=== PATIENT | female | born 1990 | race Caucasian/White ===

== ENCOUNTER 2021-08-26 11:21 | Emergency (ER) | payer BC, OTHER ==
[2021-08-26] MEDS ORDERED: diphenhydrAMINE 50 MG/ML 1 ML VIAL IVP STA (12:20)
[2021-08-26] MEDS ORDERED: MORPHINE SULFATE 4 MG/ML SYRINGE IV STA (12:20)
[2021-08-26] MEDS ORDERED: ONDANSETRON ODT 8 MG TAB.RAPDIS PO STA (12:20)
[2021-08-26] MEDS ORDERED: KETOROLAC 30 MG/ML 1 ML VIAL IVP STA (12:20)
[2021-08-26] MEDS ORDERED: SODIUM CHLORIDE 0.9% 2,000 ML IV STA (12:20)
[2021-08-26] MEDS ORDERED: ACETAMINOPHEN TAB 500 MG TAB PO STA (12:35)
[2021-08-26] MEDS ORDERED: ONDANSETRON 4 MG/2 ML VIAL IVP STA (12:35)
--- NOTE | 2021-08-26 12:35 | ED ---
General Adult HPI - General Chief complaint: Back Pain/Injury Stated complaint: back pain Time Seen by Provider: 08/26/21 12:08 Source: patient, family, RN notes reviewed, old records reviewed Mode of arrival: ambulatory Limitations: no limitations - History of Present Illness Initial comments: Patient is a 31-year-old female with past medical history remarkable for no prior medical problems currently on control who presents emergency Department complaining of abdominal pain and fevers. Patient was seen 2 or 3 days ago at a different emergency department. At that time, she was worked up for a possible spinal epidural abscess and received an MRI which is negative. They performed an ultrasound. They diagnosed with UTI, start her on antibiotics and sent her home. She states that the pain is getting worse over the last day or so with nausea and vomiting. She is having poor by mouth intake due to nausea. She presents to emergency department for reevaluation. She denies any dysuria, vaginal discharge, bleeding. She states she believes she is about to start her menstrual cycle. Denies any known history of ovarian cysts. Denies any chest pain, shortness of breath. Denies any cough. Endorses fever. Endorses bilateral flank pain as well as suprapubic abdominal pain with some radiation to the bilateral lower back. Denies any midline spinal tenderness palpation. Denies any saddle anesthesias, numbness. Denies any lower extremity weakness. Nurses normal strength in the bilateral lower extremities. Denies any headache. She has no other acute complaints at this time. Patient is concerned for possible worsening infectious process. She has been compliant with her Macrobid which she was discharged on upon leaving. No known history of any stones in herself but does endorse a history of renal stones and family memb ers. She has no history of IV drug use. - Related Data Home Medications Medication Instructions Recorded Confirmed Norgestimate-Ethinyl Estradiol 1 tab PO DAILY 05/12/16 05/12/16 [Ortho Tri-Cyclen 28 Tablet] Previous Rx's Medication Instructions Recorded Fluticasone Propionate [Flonase 1 - 2 spray EA NOSTRIL DAILY 5 05/12/16 Allergy Relief] Days ml Sulfamethox-Tmp 800-160Mg [Bactrim 1 tab PO Q12HR 7 Days #14 tab 08/26/21 DS 800-160 mg] Allergies Allergy/AdvReac Type Severity Reaction Status Date / Time Penicillins Allergy Nausea & Verified 08/26/21 11:52 Vomiting Review of Systems ROS Statement: Those systems with pertinent positive or pertinent negative responses have been documented in the HPI. Review of Systems: CONST: Endorses fever EYES: Denies blurry vision ENT: Denies nasal congestion C/V: Denies Chest pain RESP: Denies shortness of breath GI: Endorses abdominal pain : Denies dysuria SKIN: Denies rash. MSK: Denies joint pain. NEURO: Denies headache ROS Other: All systems not noted in ROS Statement are negative. Past Medical History Additional Past Medical History / Comment(s): hypoglycemia History of Any Multi-Drug Resistant Organisms: None Reported Past Surgical History: No Surgical Hx Reported Past Psychological History: No Psychological Hx Reported Smoking Status: Never smoker Past Alcohol Use History: None Reported Past Drug Use History: Marijuana General Exam - General Exam Comments Initial Comments: General: Appears in mild discomfort unable to sit still on the bed. This is secondary to abdominal pain. HEAD: Normal with no signs of head trauma. EYES: PERRLA, EOMI, conjunctiva normal, no discharge. ENT: Hearing grossly intact, normal oropharynx. Mucous members are mildly dry. RESPIRATORY: Clear breath sounds bilaterally. No wheezes, rales, or rhonchi. C/V: Regular rate and rhythm. S1 and S2 auscultated, no edema, peripheral pulses 2+ and intact throughout ABD: Abdomen is soft, nondistended. Patient is tender to palpation in the bilateral lower quadrants, mildly in the suprapubic region, as well as the bilateral flanks. There is no CVA tenderness to percussion. No upper abdominal pain. No rebound tenderness, guarding, peritoneal signs. EXT: Normal range of motion, no obvious deformity SKIN: No rashes or lesions observed on exposed skin. NEURO: Alert and oriented 4. No focal deficits. Patient is able to ambulate without difficulty. No paresthesias or numbness. Limitations: no limitations Course Vital Signs 08/26/21 08/26/21 08/26/21 11:46 12:06 15:24 Temperature 98.9 F 101.6 F H 99.9 F H Pulse Rate 131 H 106 H Respiratory 20 18 Rate Blood Pressure 130/80 121/77 O2 Sat by Pulse 99 98 Oximetry Medical Decision Making - Medical Decision Making Based on the patient's presentation and physical exam, I am concerned for possible worsening intra-abdominal process. We will obtain abdominal laboratory studies in addition to pelvic ultrasound to assess for ovarian torsion as well as CT imaging with contrast to evaluate the abdomen. She'll be symptomatically treated with 2 L fluid bolus as well as IV Zofran, morphine, Toradol, Benadryl. Patient was in agreement with this plan. CT abdomen and pelvis revealed no signs of kidney stones but did show uterine fibroids. This was redemonstrated on ultrasound, and no signs of ovarian torsion were present. Laboratory studies were remarkable for no leukocytosis. Like to lites are unremarkable. She is not . Urinalysis is relatively unremarkable but does show 1+ ketones. She had a positive urinalysis for UTI a few days ago and has been taking Macrobid. On reevaluation, patient is feeling improved. Fevers improved. Patient had a broad workup at the other hospital including MRI of the spine which did not reve al a source other than the UTI for her current symptoms. I did discuss with her that due to her negative workup, as well as relatively normal labs, I do believe is safe for her to be discharged home. We did switch up her antibiotic to Bactrim, as this is slightly more broad-spectrum coverage. She will be given a dose of 1 g Rocephin here for her UTI as well that is currently being treated. Patient was in agreement this plan. I instructed her to follow up with [facility] regarding her uterine fibroids. She was in agreement this plan. I instructed the patient to follow up with their PCP in the next 3 days. I provided contact information for follow up with [facility]. I explained that the patient should return to the emergency department if they experience any worsening symptoms. Strict return precautions were discussed with the patient. The patient expressed understanding of these instructions. I answered all questions that the patient had. The patient was discharged home in fair condition with their prescriptions and follow up information. - Lab Data Result diagrams: 08/26/21 12:08/26/21 12: Lab Results 08/26/21 08/26/21 08/26/21 Range/Units 12: 12: 12: WBC 9.0 (3.8-10.6) k/uL RBC 5.11 (3.80-5.40) m/uL Hgb 15.7 (11.4-16.0) gm/dL Hct 44.5 (34.0-46.0) % MCV 87.2 (80.0-100.0) fL MCH 30.7 (25.0-35.0) pg MCHC 35.2 (31.0-37.0) g/dL RDW 11.7 (11.5-15.5) % Plt Count 278 (150-450) k/uL MPV 8.3 Neutrophils % 91 % Lymphocytes % 4 % Monocytes % 3 % Eosinophils % 2 % Basophils % 0 % Neutrophils # 8.2 H (1.3-7.7) k/uL Lymphocytes # 0.4 L (1.0-4.8) k/uL Monocytes # 0.2 (0-1.0) k/uL Eosinophils # 0.1 (0-0.7) k/uL Basophils # 0.0 (0-0.2) k/uL PT 10.4 (9.0-12.0) sec INR 1.0 (<1.2) APTT 26.7 (22.0-30.0) sec Sodium (137-145) mmol/L Potassium (3.5-5.1) mmol/L Chloride (98-107) mmol/L Carbon Dioxide (22-30) mmol/L Anion Gap mmol/L BUN (7-17) mg/dL Creatinine (0.52-1.04) mg/dL Est GFR (CKD-EPI)AfAm (>60 ml/min/1.73 sqM) Est GFR (CKD-EPI)NonAf (>60 ml/min/1.73 sqM) Glucose (74-99) mg/dL Plasma Lactic Acid Kwadwo (0.7-2.0) mmol/L Calcium (8.4-10.2) mg/dL Total Bilirubin (0.2-1.3) mg/dL AST (14-36) U/L ALT (4-34) U/L Alkaline Phosphatase (38-126) U/L Total Protein (6.3-8.2) g/dL Albumin (3.5-5.0) g/dL Amylase (30-110) U/L Lipase (23-300) U/L HCG, Qual Urine Color Light Yellow Urine Appearance Clear (Clear) Urine pH 7.0 (5.0-8.0) Ur Specific Crawford 1.030 (1.001-1.035) Urine Protein Negative (Negative) Urine Glucose (UA) Negative (Negative) Urine Ketones 1+ H (Negative) Urine Blood Small H (Negative) Urine Nitrite Negative (Negative) Urine Bilirubin Negative (Negative) Urine Urobilinogen <2.0 (<2.0) mg/dL Ur Leukocyte Esterase Negative (Negative) Urine RBC <1 (0-5) /hpf Urine WBC 1 (0-5) /hpf Ur Squamous Epith Cells 2 (0-4) /hpf Hyaline Casts 1 (0-2) /lpf 08/26/21 08/26/21 Range/Units 12:29 12:29 WBC (3.8-10.6) k/uL RBC (3.80-5.40) m/uL Hgb (11.4-16.0) gm/dL Hct (34.0-46.0) % MCV (80.0-100.0) fL MCH (25.0-35.0) pg MCHC (31.0-37.0) g/dL RDW (11.5-15.5) % Plt Count (150-450) k/uL MPV Neutrophils % % Lymphocytes % % Monocytes % % Eosinophils % % Basophils % % Neutrophils # (1.3-7.7) k/uL Lymphocytes # (1.0-4.8) k/uL Monocytes # (0-1.0) k/uL Eosinophils # (0-0.7) k/uL Basophils # (0-0.2) k/uL PT (9.0-12.0) sec INR (<1.2) APTT (22.0-30.0) sec Sodium 136 L (137-145) mmol/L Potassium 3.7 (3.5-5.1) mmol/L Chloride 104 (98-107) mmol/L Carbon Dioxide 21 L (22-30) mmol/L Anion Gap 11 mmol/L BUN 6 L (7-17) mg/dL Creatinine 0.50 L (0.52-1.04) mg/dL Est GFR (CKD-EPI)AfAm >90 (>60 ml/min/1.73 sqM) Est GFR (CKD-EPI)NonAf >90 (>60 ml/min/1.73 sqM) Glucose 122 H (74-99) mg/dL Plasma Lactic Acid Kwadwo 1.3 (0.7-2.0) mmol/L Calcium 9.5 (8.4-10.2) mg/dL Total Bilirubin 0.5 (0.2-1.3) mg/dL AST 24 (14-36) U/L ALT 18 (4-34) U/L Alkaline Phosphatase 84 (38-126) U/L Total Protein 7.8 (6.3-8.2) g/dL Albumin 4.4 (3.5-5.0) g/dL Amylase 56 (30-110) U/L Lipase 44 (23-300) U/L HCG, Qual Not Detected Urine Color Urine Appearance (Clear) Urine pH (5.0-8.0) Ur Specific Crawford (1.001-1.035) Urine Protein (Negative) Urine Glucose (UA) (Negative) Urine Ketones (Negative) Urine Blood (Negative) Urine Nitrite (Negative) Urine Bilirubin (Negative) Urine Urobilinogen (<2.0) mg/dL Ur Leukocyte Esterase (Negative) Urine RBC (0-5) /hpf Urine WBC (0-5) /hpf Ur Squamous Epith Cells (0-4) /hpf Hyaline Casts (0-2) /lpf Disposition Clinical Impression: UTI (urinary tract infection), Uterine fibroid Disposition: HOME SELF-CARE Condition: Fair Instructions (If sedation given, give patient instructions): Acute Abdominal Pain (ED) Additional Instructions: follow up with OBGYN for uterine fibroids. Prescriptions: Sulfamethox-Tmp 800-160Mg [Bactrim DS 800-160 mg] 1 tab PO Q12HR 7 Days #14 tab Is patient prescribed a controlled substance at d/c from ED?: No Referrals: Nonstaff,Physician [Primary Care Provider] - 1-2 days Joseph Coburn MD [STAFF PHYSICIAN] - 1-2 days
[2021-08-26 13:07] LABS: Basophils % (A) 0 %; Eosinophils # (A) 0.1 k/uL (0-0.7); Eosinophils % (A) 2 %; HCT 44.5 % (34.0-46.0); HGB 15.7 gm/dL (11.4-16.0); Lymphocytes # (A) 0.4 k/uL (1.0-4.8); Lymphocytes % (A) 4 %; MCH 30.7 pg (25.0-35.0); MCHC 35.2 g/dL (31.0-37.0); MCV 87.2 fL (80.0-100.0); Mean Platelet Volume 8.3; Monocytes # (A) 0.2 k/uL (0-1.0); Monocytes % (A) 3 %; Neutrophils # (A) 8.2 k/uL (1.3-7.7); Neutrophils % (A) 91 %; Platelet Count 278 k/uL (150-450); RBC 5.11 m/uL (3.80-5.40); RDW 11.7 % (11.5-15.5)
[2021-08-26 13:16] LABS: ALT 18 U/L (4-34); AST 24 U/L (14-36); African American GFR (CKD) >90 (>60 ml/min/1.73 sqM); Albumin 4.4 g/dL (3.5-5.0); Alkaline Phosphatase 84 U/L (38-126); Amylase 56 U/L (30-110); Anion Gap 11 mmol/L; Blood Urea Nitrogen 6 mg/dL (7-17); Calcium 9.5 mg/dL (8.4-10.2); Carbon Dioxide 21 mmol/L (22-30); Chloride 104 mmol/L (98-107); Glucose 122 mg/dL (74-99); Lipase 44 U/L (23-300); Non-African American GFR(CKD) >90 (>60 ml/min/1.73 sqM); Potassium 3.7 mmol/L (3.5-5.1); Sodium 136 mmol/L (137-145); Total Bilirubin 0.5 mg/dL (0.2-1.3); Total Protein 7.8 g/dL (6.3-8.2)
[2021-08-26 13:26] LABS: HCG,Qualitative Serum Not Detected
[2021-08-26 13:32] LABS: Partial Thromboplastin Time 26.7 sec (22.0-30.0); Prothrombin Time 10.4 sec (9.0-12.0)
--- NOTE | 2021-08-26 14:03 | CT ---
EXAMINATION TYPE: CT abdomen pelvis w con DATE OF EXAM: 08/26/2021 HISTORY: Abdominal pain CT DLP: 1226.6mGycm Automated Exposure Control for Dose Reduction was Utilized. CONTRAST: CT scan of the abdomen and pelvis is performed with IV Contrast, patient injected with 100 ml mL of I sovue 300. COMPARISON: None FINDINGS: LUNG BASES: Minimal lung bases subsegmental atelectasis. INCLUDED CARDIAC STRUCTURES: Unremarkable LIVER: No significant abnormality is appreciated. GALLBLADDER : Tiny calcific density near the gallbladder neck. BILIARY TREE: No abnormal biliary tree dilation. PANCREAS: No significant abnormality is seen. SPLEEN: No significant abnormality is seen. ADRENALS: No significant abnormality is seen. KIDNEYS AND URETERS: No significant abnormality is seen. URINARY BLADDER: No significant abnormality is appreciated. ESOPHAGUS: No significant abnormality is seen. STOMACH: No significant abnormality is seen. SMALL BOWEL: No significant abnormality is seen. LARGE BOWEL: No significant abnormality is seen. APPENDIX: No significant abnormality is seen. HERNIAS: No hernia seen UTERUS/ADNEXA: Markedly enlarged uterus. Dominant follicle measuring 2.5 cm in the left ovary/adnexa. Right ovary not definitely identified. PERITONEUM/MESENTRY: No pneumoperitoneum or ascites. LYMPH NODES: No enlarged retroperitoneal or pelvic lymph nodes are appreciated. MAJOR VASCULAR STRUCTURES: Nonaneurysmal aorta. Unremarkable inferior vena cava. OSSEOUS STRUCTURES: No acute osseous normality seen. IMPRESSION: 1. NO CT EVIDENCE FOR ACUTE ABDOMINAL OR PELVIC PROCESS. 2. TINY RIGHT GALLBLADDER CALCULUS. 3. ENLARGED UTERUS SUGGESTIVE OF LEIOMYOMATA.
[2021-08-26 14:33] LABS: Appearance,Urine Clear (Clear); Bilirubin,Urine Negative (Negative); Blood,Urine Small (Negative); Color,Urine Light Yellow; Glucose,Urine (UA) Negative (Negative); Hyaline Casts,Urine 1 /lpf (0-2); Ketones,Urine 1+ (Negative); Leukocyte Esterase,Urine Negative (Negative); Nitrite,Urine Negative (Negative); Protein,Urine Negative (Negative); RBC,Urine <1 /hpf (0-5); Squamous Epithelial Cell,Urine 2 /hpf (0-4); Urobilinogen,Urine <2.0 mg/dL (<2.0); WBC,Urine 1 /hpf (0-5)
--- NOTE | 2021-08-26 14:36 | US ---
EXAMINATION TYPE: US pelvis complete transvag DATE OF EXAM: 08/26/2021 COMPARISON: NONE CLINICAL HISTORY: evaluate for ovarian torsion. TECHNIQUE: . Transabdominal sonographic images of the pelvis were acquired. Transvaginal sonographi c images were medically necessary to better assess the following anatomy: Date of LMP: EXAM MEASUREMENTS: Uterus: 12.3 x 8.1 x 8.5cm cm Endometrial Stripe: 1.8 cm Right Ovary: obscured by overlying bowel and large uterine size Left Ovary: obscured by overlying bowel and large uterine size 1. Uterus: Large fibroid obscuring endometrium measuring 8.5 x 8.5 x 8.0cm 2. Endometrium: limited visualization 3. Right Ovary: obscured by overlying bowel and large uterine size 4. Left Ovary: obscured by overlying bowel and large uterine size 5. Bilateral Adnexa: wnl 6. Posterior cul-de-sac: wnl IMPRESSION: Large uterine fibroid. No evidence of endometrial mass. Ovaries not seen. No adnexal mass. No free fl uid.
[2021-08-26 15:25] VITALS: BP 121/77; PULSE 106; RESP 18; TEMP 99.9
[2021-08-26] MEDS ORDERED: cefTRIAXone IN SWFI 1,000 MG/10 ML SYRINGE IVP STA (15:40)
[2021-08-26] MEDS ORDERED: MORPHINE SULFATE 4 MG/ML SYRINGE IVP STA (15:53)
== END 2021-08-26 16:10 | disposition home or self-care (01) ==
LOC: EC 11:21
DX: N39.0 Urinary tract infection, site not specified (principal); D25.9 Leiomyoma of uterus, unspecified; F12.90 Cannabis use, unspecified, uncomplicated; Z88.0 Allergy status to penicillin
CPT/HCPCS: 99284; 96374; 96375 ×4; 96361 ×2; 36415; 80053; 82150; 83605; 83690; 85025; 85610; 85730; 81001; 84703; 76856; 76830; 74177; J2270; J1200; J2405; J0696; J1885; Q9967

== ENCOUNTER 2021-10-16 06:10 | Emergency (ER) | payer BC, OTHER ==
[2021-10-16] MEDS ORDERED: SODIUM CHLORIDE 0.9% 500 ML 500 ML IV STA (06:33)
[2021-10-16] MEDS ORDERED: SODIUM CHLORIDE 0.9% 1,000 ML IV STA (06:33)
[2021-10-16] MEDS ORDERED: ONDANSETRON 4 MG/2 ML VIAL IVP STA (06:33)
[2021-10-16] MEDS ORDERED: HYDROmorphone 0.5 MG/0.5 ML SYRINGE IVP STA ×2 (06:33→07:45)
--- NOTE | 2021-10-16 06:37 | ED ---
General Adult HPI - General Chief complaint: Back Pain/Injury Stated complaint: Back/Abd Pain,AVERY Time Seen by Provider: 10/16/21 06:21 Source: patient, RN notes reviewed Mode of arrival: ambulatory Limitations: no limitations - History of Present Illness Initial comments: This is a 31-year-old female presents emergency Department with chief complaint of abdominal, back pain. Patient states she's had 3 episodes over the last several months. Patient states she's been seen here twice. Patient states that it's in her right upper quadrant, epigastric region and radiates to her back. She states it sharp in nature. She states that woke her out of sleep. Patient denies any diarrhea constipation or dysuria no hematuria. Patient states she was told she had a uterine fibroid that was causing her pain last time. Patient states pain radiates up is painful when she takes a deep inspiration but denies culture breath, resting chest pain. No fevers or chills. - Related Data Home Medications Medication Instructions Recorded Confirmed Norgestimate-Ethinyl Estradiol 1 tab PO DAILY 10/16/21 10/16/21 [Sprintec 28 Day Tablet] Previous Rx's Medication Instructions Recorded Ondansetron Odt [Zofran Odt] 4 mg PO Q8HR PRN #10 tab 10/16/21 Allergies Allergy/AdvReac Type Severity Reaction Status Date / Time Penicillins AdvReac Nausea & Verified 10/16/21 07:01 Vomiting Review of Systems ROS Statement: Those systems with pertinent positive or pertinent negative responses have been documented in the HPI. ROS Other: All systems not noted in ROS Statement are negative. Past Medical History Additional Past Medical History / Comment(s): hypoglycemia History of Any Multi-Drug Resistant Organisms: None Reported Past Surgical History: No Surgical Hx Reported Past Psychological History: No Psychological Hx Reported Smoking Status: Never smoker Past Alcohol Use History: None Reported Past Drug Use History: Marijuana General Exam Limitations: no limitations General appearance: alert, in no apparent distress Head exam: Present: atraumatic, normocephalic, normal inspection Eye exam: Present: normal appearance, PERRL, EOMI. Absent: scleral icterus, conjunctival injection, periorbital swelling Neck exam: Present: normal inspection, full ROM. Absent: tenderness, meningismus, lymphadenopathy Respiratory exam: Present: normal lung sounds bilaterally. Absent: respiratory distress, wheezes, rales, rhonchi, stridor Cardiovascular Exam: Present: regular rate (Right upper quadrant, epigastric), normal rhythm, normal heart sounds. Absent: systolic murmur, diastolic murmur, rubs, gallop, clicks GI/Abdominal exam: Present: soft, tenderness, normal bowel sounds. Absent: distended, guarding, rebound, rigid Back exam: Present: full ROM. Absent: CVA tenderness (R), CVA tenderness (L) Neurological exam: Present: alert, oriented X3 Skin exam: Present: warm, dry, intact, normal color. Absent: rash Course Vital Signs 10/16/21 06:11 Temperature 97.8 F Pulse Rate 91 Respiratory 22 Rate Blood Pressure 136/75 O2 Sat by Pulse 99 Oximetry Medical Decision Making - Medical Decision Making 31-year-old presented for upper abdominal pain rates her back. Patient noted h ave gallstone on prior imaging though not evident on this ultrasound though is very large gallbladder. I do feel the patient is to soak a letter type symptoms. Patient will be follow-up with on-call surgery she's patient will follow low-fat diet will return for any worsening or changing symptoms. - Lab Data Result diagrams: 10/16/21 06:57 10/16/21 06:57 Lab Results 10/16/21 10/16/21 10/16/21 Range/Units 06:57 06:57 09:24 WBC 6.1 (3.8-10.6) k/uL RBC 4.64 (3.80-5.40) m/uL Hgb 14.2 (11.4-16.0) gm/dL Hct 42.6 (34.0-46.0) % MCV 92.0 (80.0-100.0) fL MCH 30.6 (25.0-35.0) pg MCHC 33.2 (31.0-37.0) g/dL RDW 11.9 (11.5-15.5) % Plt Count 322 (150-450) k/uL MPV 8.2 Neutrophils % 53 % Lymphocytes % 34 % Monocytes % 6 % Eosinophils % 6 % Basophils % 1 % Neutrophils # 3.2 (1.3-7.7) k/uL Lymphocytes # 2.1 (1.0-4.8) k/uL Monocytes # 0.3 (0-1.0) k/uL Eosinophils # 0.3 (0-0.7) k/uL Basophils # 0.1 (0-0.2) k/uL Sodium 138 (137-145) mmol/L Potassium 3.9 (3.5-5.1) mmol/L Chloride 105 (98-107) mmol/L Carbon Dioxide 25 (22-30) mmol/L Anion Gap 8 mmol/L BUN 10 (7-17) mg/dL Creatinine 0.57 (0.52-1.04) mg/dL Est GFR (CKD-EPI)AfAm >90 (>60 ml/min/1.73 sqM) Est GFR (CKD-EPI)NonAf >90 (>60 ml/min/1.73 sqM) Glucose 113 H (74-99) mg/dL Calcium 9.7 (8.4-10.2) mg/dL Total Bilirubin 0.3 (0.2-1.3) mg/dL AST 18 (14-36) U/L ALT 12 (4-34) U/L Alkaline Phosphatase 71 (38-126) U/L Total Protein 7.6 (6.3-8.2) g/dL Albumin 4.2 (3.5-5.0) g/dL Lipase 65 (23-300) U/L Urine Color Light Yellow Urine Appearance Clear (Clear) Urine pH 6.5 (5.0-8.0) Ur Specific [place] 1.009 (1.001-1.035) Urine Protein Negative (Negative) Urine Glucose (UA) Negative (Negative) Urine Ketones Negative (Negative) Urine Blood Negative (Negative) Urine Nitrite Negative (Negative) Urine Bilirubin Negative (Negative) Urine Urobilinogen <2.0 (<2.0) mg/dL Ur Leukocyte Esterase Negative (Negative) Urine HCG, Qual (Not Detectd) 10/16/21 Range/Units 09:24 WBC (3.8-10.6) k/uL RBC (3.80-5.40) m/uL Hgb (11.4-16.0) gm/dL Hct (34.0-46.0) % MCV (80.0-100.0) fL MCH (25.0-35.0) pg MCHC (31.0-37.0) g/dL RDW (11.5-15.5) % Plt Count (150-450) k/uL MPV Neutrophils % % Lymphocytes % % Monocytes % % Eosinophils % % Basophils % % Neutrophils # (1.3-7.7) k/uL Lymphocytes # (1.0-4.8) k/uL Monocytes # (0-1.0) k/uL Eosinophils # (0-0.7) k/uL Basophils # (0-0.2) k/uL Sodium (137-145) mmol/L Potassium (3.5-5.1) mmol/L Chloride (98-107) mmol/L Carbon Dioxide (22-30) mmol/L Anion Gap mmol/L BUN (7-17) mg/dL Creatinine (0.52-1.04) mg/dL Est GFR (CKD-EPI)AfAm (>60 ml/min/1.73 sqM) Est GFR (CKD-EPI)NonAf (>60 ml/min/1.73 sqM) Glucose (74-99) mg/dL Calcium (8.4-10.2) mg/dL Total Bilirubin (0.2-1.3) mg/dL AST (14-36) U/L ALT (4-34) U/L Alkaline Phosphatase (38-126) U/L Total Protein (6.3-8.2) g/dL Albumin (3.5-5.0) g/dL Lipase (23-300) U/L Urine Color Urine Appearance (Clear) Urine pH (5.0-8.0) Ur Specific [place] (1.001-1.035) Urine Protein (Negative) Urine Glucose (UA) (Negative) Urine Ketones (Negative) Urine Blood (Negative) Urine Nitrite (Negative) Urine Bilirubin (Negative) Urine Urobilinogen (<2.0) mg/dL Ur Leukocyte Esterase (Negative) Urine HCG, Qual Not Detected (Not Detectd) Disposition Clinical Impression: Biliary dyskinesia, Biliary colic Disposition: HOME SELF-CARE Condition: Stable Instructions (If sedation given, give patient instructions): Abdominal Pain (ED) Additional Instructions: Please return to the Emergency Department if symptoms worsen or any other concer ns. Prescriptions: Ondansetron Odt [Zofran Odt] 4 mg PO Q8HR PRN #10 tab PRN Reason: Nausea Is patient prescribed a controlled substance at d/c from ED?: No Referrals: Nonstaff,Physician [Primary Care Provider] - 1-2 days Houston Jade MD [STAFF PHYSICIAN] - 1-2 days Time of Disposition: 10:02
[2021-10-16 07:12] LABS: Basophils # (A) 0.1 k/uL (0-0.2); Basophils % (A) 1 %; Eosinophils # (A) 0.3 k/uL (0-0.7); Eosinophils % (A) 6 %; HCT 42.6 % (34.0-46.0); HGB 14.2 gm/dL (11.4-16.0); Lymphocytes # (A) 2.1 k/uL (1.0-4.8); Lymphocytes % (A) 34 %; MCH 30.6 pg (25.0-35.0); MCHC 33.2 g/dL (31.0-37.0); Mean Platelet Volume 8.2; Monocytes # (A) 0.3 k/uL (0-1.0); Monocytes % (A) 6 %; Neutrophils # (A) 3.2 k/uL (1.3-7.7); Neutrophils % (A) 53 %; Platelet Count 322 k/uL (150-450); RBC 4.64 m/uL (3.80-5.40); RDW 11.9 % (11.5-15.5); WBC 6.1 k/uL (3.8-10.6)
[2021-10-16 07:21] LABS: ALT 12 U/L (4-34); AST 18 U/L (14-36); African American GFR (CKD) >90 (>60 ml/min/1.73 sqM); Albumin 4.2 g/dL (3.5-5.0); Alkaline Phosphatase 71 U/L (38-126); Anion Gap 8 mmol/L; Blood Urea Nitrogen 10 mg/dL (7-17); Calcium 9.7 mg/dL (8.4-10.2); Carbon Dioxide 25 mmol/L (22-30); Chloride 105 mmol/L (98-107); Glucose 113 mg/dL (74-99); Lipase 65 U/L (23-300); Non-African American GFR(CKD) >90 (>60 ml/min/1.73 sqM); Potassium 3.9 mmol/L (3.5-5.1); Sodium 138 mmol/L (137-145); Total Bilirubin 0.3 mg/dL (0.2-1.3); Total Protein 7.6 g/dL (6.3-8.2)
[2021-10-16] MEDS ORDERED: KETOROLAC 15 MG/ML 1 ML VIAL IVP STA (07:45)
--- NOTE | 2021-10-16 08:08 | US ---
EXAMINATION TYPE: US gallbladder DATE OF EXAM: 10/16/2021 COMPARISON: CT abdomen and pelvis August 18 820.1 CLINICAL HISTORY: pain. RUQ pain. EXAM MEASUREMENTS: Liver Length: 20.7 cm Gallbladder Wall: 0.2 cm CBD: 0.6 cm Right Kidney: 9.7 x 4.5 x 4.0 cm Pancreas: wnl Liver: Appears enlarged in size. Gallbladder: Appears enlarged in size. No thickened polanco, stones or sludge visualized. Evidence for sonographic Gomez's sign: neg CBD: wnl Right Kidney: No hydronephrosis or masses seen IMPRESSION: No shadowing mobile gallstones or ultrasound evidence for acute cholecystitis.
[2021-10-16 09:52] LABS: Appearance,Urine Clear (Clear); Bilirubin,Urine Negative (Negative); Blood,Urine Negative (Negative); Color,Urine Light Yellow; Glucose,Urine (UA) Negative (Negative); Ketones,Urine Negative (Negative); Leukocyte Esterase,Urine Negative (Negative); Nitrite,Urine Negative (Negative); PH, Urine 6.5 (5.0-8.0); Protein,Urine Negative (Negative); Specific Gravity,Urine 1.009 (1.001-1.035); Urobilinogen,Urine <2.0 mg/dL (<2.0)
[2021-10-16] MEDS ORDERED: ACET/COD 300 MG/30 MG STARTER PACK 6 TAB BTL PO STA (10:03)
[2021-10-16 10:13] VITALS: BP 144/91; PULSE 84; RESP 16; TEMP 97.9
== END 2021-10-16 10:26 | disposition home or self-care (01) ==
LOC: EC 06:10
DX: K82.8 Other specified diseases of gallbladder (principal); K80.50 Calculus of bile duct without cholangitis or cholecystitis without obstruction; F12.90 Cannabis use, unspecified, uncomplicated
CPT/HCPCS: 36415; 80053; 83690; 85025; 81003; 81025; 76705; 99284; 96374; 96375 ×2; 96376; 96361 ×2; J2405; J1885; J1170

== ENCOUNTER 2021-10-31 06:38 | Day surgery (SDC) | payer BC, OTHER ==
[2021-10-26 16:08] VITALS: BMI 27.7
[~2021-10-31 06:38] MED LIST: ACETAMINOPHEN TAB 500 MG TAB PO PRN; HEPARIN SODIUM,PORCINE/PF 5,000 UNIT/0.5 ML SYRINGE SQ PRN
[2021-10-31] MEDS ORDERED: ONDANSETRON 4 MG/2 ML VIAL IVP ONE ×2 (06:47→10:31)
[2021-10-31] MEDS ORDERED: DEXAMETHASONE SOD PHOSPHATE 4 MG/ML 1 ML VIAL IV ONE (06:47)
[2021-10-31] MEDS ORDERED: LACTATED RINGERS 1,000 ML IV SCH (06:47)
[2021-10-31] MEDS ORDERED: LIDOCAINE 1% (10MG/ML) FOR IV START INTRADERMA PRN (06:47)
[2021-10-31 07:36] LABS: Glucose,Whole Blood 106 mg/dL (75-99)
[2021-10-31] MEDS ORDERED: MIDAZOLAM 2 MG/2 ML VIAL IVP ONE (07:46)
[2021-10-31] MEDS ORDERED: MIDAZOLAM 2 MG/2 ML VIAL ONE (08:05)
[2021-10-31] MEDS ORDERED: SUCCINYLCHOLINE CHLORIDE 100 MG/5 ML SYR IV ONE (08:05)
[2021-10-31] MEDS ORDERED: PROPOFOL 10 MG/ML 20 ML VIAL IV ONE (08:05)
[2021-10-31] MEDS ORDERED: GLYCOPYRROLATE 0.2 MG/ML 2 ML VIAL ONE (08:05)
[2021-10-31] MEDS ORDERED: KETOROLAC 15 MG/ML 1 ML VIAL ONE (08:05)
[2021-10-31] MEDS ORDERED: fentaNYL (PF) 50 MCG/ML 2 ML AMP ONE (08:05)
[2021-10-31] MEDS ORDERED: NEOSTIGMINE 1 MG/ML 10 ML VIAL ONE (08:05)
[2021-10-31] MEDS ORDERED: ROCURONIUM 10 MG/ML (5 ML VIAL) IV ONE (08:05)
[2021-10-31] MEDS ORDERED: BUPIVACAIN-EPI 0.25%-1:200,000 30 ML VIAL SQ ONE (08:31)
[2021-10-31 08:59] VITALS: TEMP 97
--- NOTE | 2021-10-31 08:59 | P.GSHP ---
History of Present Illness H&P Date: 10/31/21 Chief Complaint: Right upper quadrant pain This is a 29-year-old female who's had chronic complaints of right upper quadrant pain. Patient states when she eats fried or fatty meals she has significant pain upper quadrant. She presents today for laparoscopic was sent for chronic cholecystitis. Past Medical History Past Medical History: Hearing Disorder / Deafness Additional Past Medical History / Comment(s): hypoglycemia. seasonal allergies. fibroid (dx on 10/29/21.) History of Any Multi-Drug Resistant Organisms: None Reported Past Surgical History: No Surgical Hx Reported Additional Past Surgical History / Comment(s): wisdom teeth Past Anesthesia/Blood Transfusion Reactions: Previous Problems w/ Anesthesia Additional Past Anesthesia/Blood Transfusion Reaction / Comment(s): slow to wake up from anesthesia Past Psychological History: No Psychological Hx Reported Smoking Status: Never smoker Past Alcohol Use History: None Reported Past Drug Use History: Marijuana - Past Family History Mother Family Medical History: No Reported History Medications and Allergies Home Medications Medication Instructions Recorded Confirmed Type Norgestimate-Ethinyl Estradiol 1 tab PO DAILY 10/16/21 10/31/21 History [Sprintec 28 Day Tablet] Ascorbic Acid [Vitamin C] 500 mg PO DAILY 10/26/21 10/31/21 History Cholecalciferol [Vitamin D3 (125 250 mcg PO DAILY 10/26/21 10/31/21 History Mcg = 5000 Iu)] Cranberry Fruit Extract [Cranberry] 500 mg PO DAILY 10/26/21 10/31/21 History Cyanocobalamin (Vitamin B-12) 1,000 mcg PO DAILY 10/26/21 10/31/21 History [Vitamin B-12] L.acidoph,Paracasei, B.lactis 1 each PO DAILY 10/26/21 10/31/21 History [Probiotic] Loratadine [Claritin] 10 mg PO DAILY 10/26/21 10/31/21 History Multivit-Min/Folic Acid/Biotin 133.3 mcg PO DAILY 10/26/21 10/31/21 History [Hair, Skin and Nails Softgel] Allergies Allergy/AdvReac Type Severity Reaction Status Date / Time Penicillins AdvReac Nausea & Verified 10/31/21 07:16 Vomiting Surgical - Exam Vital Signs Temp Pulse Resp BP Pulse Ox 97.9 F 91 18 135/73 96 10/31/21 07:19 02/02/22 07:19 10/31/21 07:19 10/31/21 07:19 10/31/21 07:19 - General well developed, well nourished, no distress - Eyes PERRL - ENT normal pinna - Neck no masses - Respiratory normal expansion - Cardiovascular Rhythm: regular - Abdomen Abdomen: soft, non tender Results - Labs Abnormal Lab Results - Last 24 Hours (Table) 10/31/21 Range/Units 07:32 POC Glucose (mg/dL) 106 H (75-99) mg/dL Assessment and Plan Assessment: Chronic cholecystitis. We'll perform laparoscopic cholecystectomy
--- NOTE | 2021-10-31 09:02 | P.OP ---
Date of Procedure: 10/31/21 Preoperative Diagnosis: Chronic cholecystitis Postoperative Diagnosis: Chronic cholecystitis Procedure(s) Performed: Laparoscopic cholecystectomy Anesthesia: DOUG Surgeon: Houston Jade Estimated Blood Loss (ml): 5 Pathology: other (Gallbladder) Condition: stable Disposition: PACU Description of Procedure: The patient was placed on the operating table. The patient received a general endotracheal tube anesthesia. The patients abdomen was prepped and draped in the usual sterile fashion. Through an infraumbilical stab incision, the fascia of the anterior abdominal wall was grasped with a pair of Kochers and then the Veress needle was placed in the peritoneal cavity. Position of the Veress needle was confirmed with positive drop test. The abdomen was then insufflated. After adequate insufflation, the 10 mm trocar was placed in the peritoneal cavity. Following this the laparoscope was placed in the peritoneal cavity. The patient was placed in the head-up, right side up position and then a 5 mm trocar was placed in the right lateral and right subcostal position under direct visualization. A 8 mm trocar was placed in the epigastric position. The gallbladder was grasped in the fundus and infundibulum. Traction on the gallbladder was placed in the lateral and the cephalad positions. The triangle of Calot was visualized.. The cystic duct was bluntly dissected until the union of the cystic duct and common bile duct was seen. A critical view of safety was achieved. The cystic duct was then divided and sealed with the Harmonic scissors. A PDS Endoloop was then placed throughout the cystic duct stump. The cystic artery divided and sealed with the Harmonic scissors. The gallbladder was then removed from the liver bed using Harmonic scissors. The gallbladder was then extracted through the epigastric port site. Operative field was checked for any bleeding spots and Harmonic scissors was used to coagulate the liver bed. The abdomen was irrigated. The trocars were removed. The skin was closed using interrupted 3-0 Vicryl suture. Dermabond dressing were applied. The patient tolerated the procedure well.
[2021-10-31] MEDS ORDERED: HYDROmorphone 1 MG/ML 1 ML SYRINGE ONE (09:03)
[2021-10-31] MEDS: HYDROmorphone 0.5 MG/0.5 ML SYRINGE IVP PRN ×4 (09:05→09:29)
[2021-10-31 09:50] VITALS: RESP 18
[2021-10-31] MEDS ORDERED: LACTATED RINGERS 1,000 ML IV ONE (10:15)
[2021-10-31 11:15] VITALS: BP 115/75; PULSE 72
== END 2021-10-31 11:23 | disposition home or self-care (01) ==
LOC: OR 06:38
PROVIDERS: ATTEND Surgery
DX: K80.10 Calculus of gallbladder with chronic cholecystitis without obstruction (principal); H91.90 Unspecified hearing loss, unspecified ear; E16.2 Hypoglycemia, unspecified; J30.2 Other seasonal allergic rhinitis; D21.9 Benign neoplasm of connective and other soft tissue, unspecified; Z98.890 Other specified postprocedural states; Z79.3 Long term (current) use of hormonal contraceptives; Z79.899 Other long term (current) drug therapy; Z88.0 Allergy status to penicillin
CPT/HCPCS: 81025; 88304; 47562; J2250; J1100; J2710; J0690; J2405; J3010; J1885; J0330; J2704; J1170; J1644

== ENCOUNTER 2024-08-20 10:20 | Emergency (ER) | payer BC, OTHER ==
[2024-08-20 10:31] VITALS: PULSE 102; RESP 20; TEMP 97.9
--- NOTE | 2024-08-20 10:58 | ED ---
Chest Pain HPI - General Source: patient, RN notes reviewed Mode of arrival: ambulatory Limitations: no limitations - History of Present Illness MD Complaint: chest pain <Amarilis Ruggiero - Last Filed: 08/20/24 10:57> <Joshua Ding - Last Filed: 08/20/24 13:03> - General Chief Complaint: Chest Pain Stated Complaint: chest pain Time Seen by Provider: 08/20/24 10:55 - History of Present Illness Initial Comments: Quick Note: This is a 34-year-old female who presents to the emergency department for chest pain. States that over the last month she has been very stressed due to work and in general she feels very unwell. She is nauseous, weak, and not eating. When she woke up this morning she had a cramping centralized chest pain radiating into her back between her shoulder blades. Feels like she cannot take a full deep breath. Denies any history of chest pain in the past. (Amarilis Ruggiero) This is a 34-year-old female who presents to the emergency department stating that she is under an immense amount of stress and since then she has lost about 10 pounds over the last month or so and she has been a little nauseous feeling weak and not eating much. Patient states she is also not sleeping very well. Patient states this morning she had some sharp central chest pain that she felt radiated to her back but it is gone now. Patient denied any shortness of breath. Patient denied fever chills or cough. Patient states that taking a jordan p breath did seem like it took an effort earlier today. Patient believes it is probably all stress related. (Joshua Ding) - Related Data Home Medications Medication Instructions Recorded Confirmed norgestimate-ethinyl estradioL 1 tab PO DAILY 10/16/21 10/31/21 [Sprintec 28 Day Tablet] Ascorbic Acid [Vitamin C] 500 mg PO DAILY 10/26/21 10/31/21 Cholecalciferol [Vitamin D3 (125 250 mcg PO DAILY 10/26/21 10/31/21 Mcg = 5000 Iu)] Cranberry Fruit Extract [Cranberry] 500 mg PO DAILY 10/26/21 10/31/21 Cyanocobalamin (Vitamin B-12) 1,000 mcg PO DAILY 10/26/21 10/31/21 [Vitamin B-12] L.acidoph,Paracasei, B.lactis 1 each PO DAILY 10/26/21 10/31/21 [Probiotic] Loratadine [Claritin] 10 mg PO DAILY 10/26/21 10/31/21 Multivit-Min/Folic Acid/Biotin 133.3 mcg PO DAILY 10/26/21 10/31/21 [Hair, Skin and Nails Softgel] Previous Rx's Medication Instructions Recorded Acetaminophen Tab [Tylenol] 650 mg PO Q6H #30 tab 10/31/21 Docusate [Colace] 100 mg PO BID #20 capsule 10/31/21 Ibuprofen [Motrin] 600 mg PO Q6HR PRN #40 tab 10/31/21 oxyCODONE HCL [OxyIR] 5 mg PO Q6H PRN 3 Days #10 tab 10/31/21 Allergies Allergy/AdvReac Type Severity Reaction Status Date / Time Penicillins AdvReac Nausea & Verified 10/31/21 07:16 Vomiting Review of Systems ROS Other: All systems not noted in ROS Statement are negative. <Amarilis Ruggiero - Last Filed: 08/20/24 10:57> ROS Other: All systems not noted in ROS Statement are negative. <Joshua Ding - Last Filed: 08/20/24 13:03> ROS Statement: Those systems with pertinent positive or pertinent negative responses have been documented in the HPI. Past Medical History Past Medical History: Hearing Disorder / Deafness Additional Past Medical History / Comment(s): hypoglycemia. seasonal allergies. fibroid (dx on 10/29/21.) History of Any Multi-Drug Resistant Organisms: None Reported Past Surgical History: No Surgical Hx Reported Additional Past Surgical History / Comment(s): wisdom teeth Past Anesthesia/Blood Transfusion Reactions: Previous Problems w/ Anesthesia Additional Past Anesthesia/Blood Transfusion Reaction / Comment(s): slow to wake up from anesthesia Past Psychological History: Depression Smoking Status: Never smoker Past Alcohol Use History: None Reported Past Drug Use History: Marijuana - Past Family History Mother Family Medical History: No Reported History <Amarilis Ruggiero - Last Filed: 08/20/24 10:57> General Exam Limitations: no limitations <Amarilis Ruggiero - Last Filed: 08/20/24 10:57> <Joshua Ding - Last Filed: 08/20/24 13:03> - General Exam Comments Initial Comments: Visual Physical Exam Vital signs reviewed General: Well-appearing, nontoxic, no acute distress. Head: Normocephalic, atraumatic Eyes: PERRLA, EOMI ENT: Airway patent Chest: Nonlabored breathing Skin: No visual rash, normal skin tone Neuro: Alert and oriented 3 Musculoskeletal: No gross abnormalities (Amarilis Ruggiero) GENERAL: Patient is well-developed and well-nourished. Patient is nontoxic and well- hydrated and is in no acute distress. ENT: Neck is soft and supple. No significant lymphadenopathy is noted. Oropharynx is clear. Moist mucous membranes. Neck has full range of motion without eliciting any pain. EYES: The sclera were anicteric and conjunctiva were pink and moist. Extraocular movements were intact and pupils were equal round and reactive to light. Eyelids were unremarkable. PULMONARY: Unlabored respirations. Good breath sounds bilaterally. No audible rales rhonchi or wheezing was noted. CARDIOVASCULAR: There is a regular rate and rhythm without any murmurs gallops or rubs. ABDOMEN: Soft and nontender with normal bowel sounds. SKIN: Skin is clear with no lesions or rashes and otherwise unremarkable. NEUROLOGIC: Patient is alert and oriented x3. Cranial nerves II through XII are grossly intact. Motor and sensory are also intact. Normal speech, volume and content. Symmetrical smile. MUSCULOSKELETAL: Normal extremities with adequate strength and full range of motion. LYMPHATICS: No significant lymphadenopathy is noted PSYCHIATRIC: Patient seems mildly anxious (Joshua Ding) Course Vital Signs 08/20/24 10:29 Temperature 97.9 F Pulse Rate 102 H Respiratory 20 Rate Blood Pressure 126/86 O2 Sat by Pulse 99 Oximetry Chest Pain [facility] <Amarilis Ruggiero - Last Filed: 08/20/24 10:57> - Core Measures AMI Core Measures Followed: (Matt) <Joshua Ding - Last Filed: 08/20/24 13:03> - [facility] I performed the QuickNote portion of this chart. Signed Amarilis Ruggiero PA-C. (Amarilis Ruggiero) Was pt. sent in by a medical professional or institution (MELISSA Quintana, REPORTING COORDINATOR, urgent care, hospital, or snf...) When possible be specific @ -No Did you speak to anyone other than the patient for history (EMS, parent, family, police, friend...)? What history was obtained from this source @ -No Did you review nursing and triage notes (agree or disagree)? Why? @ -I reviewed and agree with nursing and triage notes Were old charts reviewed (outside hosp., previous admission, EMS record, old EKG, old radiological studies, urgent care reports/EKG's, snf records)? Report findings @ -No old charts were reviewed Differential Diagnosis? @ -Differential Chest Pain: Stable Angina, Unstable Angina, STEMI, NSTEMI Aortic Dissection, Pneumothorax, Musculoskeletal, Esophageal Spasm GERD, Cholecystitis, Pancreatitis, Zoster, this is not meant to be an all-inclusive list. EKG interpreted by me (3pts min.). @ -As above X-rays interpreted by me (1pt min.). @ -Chest x-ray shows no acute abnormality CT interpreted by me (1pt min.). @ -None done U/S interpreted by me (1pt. min.). @ -None done What testing was considered but not performed or refused? (CT, X-rays, U/S, labs)? Why? @ -None What meds were considered but not given or refused? Why? @ -None Did you discuss the management of the patient with other professionals (professionals i.e. , PA, REPORTING COORDINATOR, lab, RT, psych nurse, social work program coordinator, electric shipyard operator, teacher, labor relations officer, top case assembler)? Give summary @ -No Was smoking cessation discussed for >3mins.? @ -No Was critical care preformed (if so, how long)? @ -No Were there social determinants of health that impacted care today? How? (H omelessness, low income, unemployed, alcoholism, drug addiction, transportation, low edu. Level, literacy, decrease access to med. care, [facility], rehab)? @ -No Was there de-escalation of care discussed even if they declined (Discuss DNR or withdrawal of care, Hospice)? DNR status @ -No What co-morbidities impacted this encounter? (DM, HTN, Smoking, COPD, CAD, Cancer, CVA, ARF, Chemo, Hep., AIDS, mental health diagnosis, sleep apnea, morbid obesity)? @ -None Was patient admitted / discharged? Hospital course, mention meds given and route, prescriptions, significant lab abnormalities, going to OR and other pertinent info. @ -Patient was no longer experiencing chest pain when I went back out to reevaluate her. Patient's EKG did not show any acute abnormalities. Patient's troponin was normal. Patient is D-dimer was normal. Patient had no other complaints at this time. She was confident that this was all secondary to stress. Undiagnosed new problem with uncertain prognosis? @ -No Drug Therapy requiring intensive monitoring for toxicity (Heparin, Nitro, Insulin, Cardizem)? @ -No Were any procedures done? @ -No Diagnosis/symptom? @ -Anxiety Acute, or Chronic, or Acute on Chronic? @ -Acute Uncomplicated (without systemic symptoms) or Complicated (systemic symptoms)? @ -Complicated Side effects of treatment? @ -No Exacerbation, Progression, or Severe Exacerbation? @ -No Poses a threat to life or bodily function? How? (Chest pain, USA, CT, pneumonia, PE, COPD, DKA, ARF, appy, cholecystitis, CVA, Diverticulitis, Homicidal, Suicidal, threat to staff... and all critical care pts) @ -No Diagnosis/symptom? @ -Chest pain Acute, or Chronic, or Acute on Chronic? @ -Acute Uncomplicated (without systemic symptoms) or Complicated (systemic symptoms)? @ -Complicated Side effects of treatment? @ -None Exacerbation, Progression, or Severe Exacerbation] @ -No Poses a threat to life or bodily function? @ -No (Joshua Ding) Disposition <Amarilis Ruggiero - Last Filed: 08/20/24 10:57> Is patient prescribed a controlled substance at d/c from ED?: No Time of Disposition: 13:03 <Joshua Ding - Last Filed: 08/20/24 13:03> Clinical Impression: Chest pain, Anxiety Disposition: HOME SELF-CARE Condition: Good Instructions (If sedation given, give patient instructions): Chest Pain (ED), Generalized Anxiety Disorder (ED) Referrals: Diego Luz DO [Primary Care Provider] - 1-2 days
[2024-08-20 11:12] LABS: Basophils % (A) 1 %; Eosinophils # (A) 0.1 k/uL (0-0.7); Eosinophils % (A) 1 %; HCT 44.5 % (34.0-46.0); Lymphocytes # (A) 1.3 k/uL (1.0-4.8); Lymphocytes % (A) 18 %; MCH 30.4 pg (25.0-35.0); MCHC 33.6 g/dL (31.0-37.0); MCV 90.4 fL (80.0-100.0); Mean Platelet Volume 7.9; Monocytes # (A) 0.4 k/uL (0-1.0); Monocytes % (A) 5 %; Neutrophils # (A) 5.2 k/uL (1.3-7.7); Neutrophils % (A) 74 %; Platelet Count 349 k/uL (150-450); RBC 4.92 m/uL (3.80-5.40); RDW 11.9 % (11.5-15.5)
[2024-08-20 11:38] LABS: ALT 18 U/L (4-34); AST 18 U/L (14-36); African American GFR (CKD) >90 (>60 ml/min/1.73 sqM); Albumin 4.8 g/dL (3.5-5.0); Alkaline Phosphatase 91 U/L (38-126); Anion Gap 10 mmol/L; Blood Urea Nitrogen 10 mg/dL (7-17); Calcium 9.8 mg/dL (8.4-10.2); Carbon Dioxide 25 mmol/L (22-30); Chloride 106 mmol/L (98-107); Glucose 105 mg/dL (74-99); Magnesium 1.9 mg/dL (1.6-2.3); Non-African American GFR(CKD) >90 (>60 ml/min/1.73 sqM); Sodium 141 mmol/L (137-145); Total Bilirubin 0.6 mg/dL (0.2-1.3)
[2024-08-20 11:39] LABS: Partial Thromboplastin Time 27.5 sec (22.0-30.0); Prothrombin Time 10.6 sec (10.0-12.5)
--- NOTE | 2024-08-20 12:05 | XR ---
EXAMINATION TYPE: XR chest 2V DATE OF EXAM: 08/20/2024 CLINICAL HISTORY: Chest pain TECHNIQUE: Frontal and lateral views of the chest are obtained. COMPARISON: 05/12/2016 FINDINGS: There is no focal air space opacity, pleural effusion, or pneumothorax seen. The cardiac silhouette size is within normal limits. The osseous structures are intact. IMPRESSION: No acute cardiopulmonary process. [facility], , 08/20/2024 12:03 PM
[2024-08-20 12:13] LABS: HCG,Qualitative Serum Not Detected
[2024-08-20 13:15] VITALS: BP 128/89
== END 2024-08-20 13:17 | disposition home or self-care (01) ==
LOC: EC 10:20
DX: R07.89 Other chest pain (principal); F41.9 Anxiety disorder, unspecified; Z88.0 Allergy status to penicillin
CPT/HCPCS: 36415; 71046; 80053; 83735; 84484; 84703; 85025; 85379; 85610; 85730; 93005; 99285

== ENCOUNTER 2025-04-23 12:53 | Emergency (ER) | payer BC ==
--- NOTE | 2025-04-23 14:11 | ED ---
General Adult HPI - General Chief complaint: GI Bleed Stated complaint: Blood in stool Time Seen by Provider: 04/23/25 13:38 Source: patient, RN notes reviewed Mode of arrival: ambulatory Limitations: no limitations - History of Present Illness Initial comments: 34-year-old female with no reported medical conditions presenting to the emergency room with complaints of bright red blood per rectum that has been intermittent over the past month. Patient states that over the past few days she has had a burning type of sensation located near the right side of her rectum and noticed bright red blood streaking her stool and about a tablespoon of blood within the toilet and blood on the toilet paper when she wipes. She denies abdominal pain, melena, hematemesis, nausea, vomiting, fevers or chills. Denies previous surgeries of the abdomen. Reports family history of colon cancer. - Related Data Home Medications Medication Instructions Recorded Confirmed norgestimate-ethinyl estradioL 1 tab PO DAILY 10/16/21 10/31/21 [Sprintec 28 Day Tablet] Ascorbic Acid [Vitamin C] 500 mg PO DAILY 10/26/21 10/31/21 Cholecalciferol [Vitamin D3 (125 250 mcg PO DAILY 10/26/21 10/31/21 Mcg = 5000 Iu)] Cranberry Fruit Extract [Cranberry] 500 mg PO DAILY 10/26/21 10/31/21 Cyanocobalamin (Vitamin B-12) 1,000 mcg PO DAILY 10/26/21 10/31/21 [Vitamin B-12] L.acidoph,Paracasei, B.lactis 1 each PO DAILY 10/26/21 10/31/21 [Probiotic] Loratadine [Claritin] 10 mg PO DAILY 10/26/21 10/31/21 Multivit-Min/Folic Acid/Biotin 133.3 mcg PO DAILY 10/26/21 10/31/21 [Hair, Skin and Nails Softgel] Previous Rx's Medication Instructions Recorded Acetaminophen Tab [Tylenol] 650 mg PO Q6H #30 tab 10/31/21 Docusate [Colace] 100 mg PO BID #20 capsule 10/31/21 Ibuprofen [Motrin] 600 mg PO Q6HR PRN #40 tab 10/31/21 oxyCODONE HCL [OxyIR] 5 mg PO Q6H PRN 3 Days #10 tab 10/31/21 Allergies Allergy/AdvReac Type Severity Reaction Status Date / Time Penicillins AdvReac Nausea & Verified 04/23/25 13:06 Vomiting Review of Systems ROS Statement: Those systems with pertinent positive or pertinent negative responses have been documented in the HPI. ROS Other: All systems not noted in ROS Statement are negative. Past Medical History Past Medical History: Hearing Disorder / Deafness Additional Past Medical History / Comment(s): hypoglycemia. seasonal allergies. fibroid (dx on 10/29/21.) History of Any Multi-Drug Resistant Organisms: None Reported Past Surgical History: Cholecystectomy Additional Past Surgical History / Comment(s): wisdom teeth Past Anesthesia/Blood Transfusion Reactions: Previous Problems w/ Anesthesia Additional Past Anesthesia/Blood Transfusion Reaction / Comment(s): slow to wake up from anesthesia Past Psychological History: Depression Smoking Status: Never smoker Past Alcohol Use History: None Reported Past Drug Use History: Marijuana - Past Family History Mother Family Medical History: No Reported History General Exam Limitations: no limitations Neck exam: Present: normal inspection. Absent: tenderness, meningismus, lymphadenopathy Respiratory exam: Present: normal lung sounds bilaterally. Absent: respiratory distress, wheezes, rales, rhonchi, stridor Cardiovascular Exam: Present: regular rate, normal rhythm, normal heart sounds. Absent: systolic murmur, diastolic murmur, rubs, gallop, clicks GI/Abdominal exam: Present: soft, normal bowel sounds. Absent: distended, tenderness, guarding, rebound, rigid Rectal exam: Present: normal inspection, normal rectal tone. Absent: black stool, bloody stool, fecal impaction, hemorrhoids Extremities exam: Present: normal inspection, full ROM, normal capillary refill. Absent: tenderness, pedal edema, joint swelling, calf tenderness Course Vital Signs 04/23/25 13:04 Temperature 97.7 F Pulse Rate 90 Respiratory 20 Rate Blood Pressure 142/89 O2 Sat by Pulse 99 Oximetry Medical Decision Making - Medical Decision Making Was pt. sent in by a medical professional or institution (, PA, TOWER CLEANER, urgent care, hospital, or senior living...) When possible be specific @ -No Did you speak to anyone other than the patient for history (EMS, parent, family, police, friend...)? What history was obtained from this source @ -No Did you review nursing and triage notes (agree or disagree)? Why? @ -I reviewed and agree with nursing and triage notes Were old charts reviewed (outside hosp., previous admission, EMS record, old EKG, old radiological studies, urgent care reports/EKG's, senior living records)? Report findings @ -No old charts were reviewed Differential Diagnosis (chest pain, altered mental status, abdominal pain women, abdominal pain men, vaginal bleeding, weakness, fever, dyspnea, syncope, headache, dizziness, GI bleed, back pain, seizure, CVA, palpatations, mental health, musculoskeletal)? @ -Differential GI Bleed: Esophageal varices, aortoenteric fistula, Yaritza-Liu, gastritis, peptic ulcer disease, diverticulosis, inflammatory bowel disease, hemorrhoids, fissure, colitis, malignancy, Meckel's diverticulum, this is not meant to be an all- inclusive list. EKG interpreted by me (3pts min.). @ -None X-rays interpreted by me (1pt min.). @ -None done CT interpreted by me (1pt min.). @ -None done U/S interpreted by me (1pt. min.). @ -None done What testing was considered but not performed or refused? (CT, X-rays, U/S, labs)? Why? @ -None What meds were considered but not given or refused? Why? @ -None Did you discuss the management of the patient with other professionals (professionals i.e. , PA, TOWER CLEANER, lab, RT, psych nurse, delinquency prevention social worker, electronic pagination system operator, teacher, sba business development officer, block and case maker)? Give summary @ -No Was smoking cessation discussed for >3mins.? @ -No Was critical care preformed (if so, how long)? @ -No Were there social determinants of health that impacted care today? How? (Homele ssness, low income, unemployed, alcoholism, drug addiction, transportation, low edu. Level, literacy, decrease access to med. care, snf, rehab)? @ -No Was there de-escalation of care discussed even if they declined (Discuss DNR or withdrawal of care, Hospice)? DNR status @ -No What co-morbidities impacted this encounter? (DM, HTN, Smoking, COPD, CAD, Cancer, CVA, ARF, Chemo, Hep., AIDS, mental health diagnosis, sleep apnea, morbid obesity)? @ -None Was patient admitted / discharged? Hospital course, mention meds given and route, prescriptions, significant lab abnormalities, going to OR and other pertinent info. @ -Discharge. 34-year-old female presenting with complaints of bright red blood per rectum. Rectal examination completed with nursing staff at bedside to reveal good rectal tone with no evidence of anal fissures or external hemorrhoids. Occult blood is negative. Abdominal examination is unremarkable. Hemoglobin is stable at 14.6. Recommend that patient follow-up with primary care provider on Friday for further evaluation with likely colonoscopy. Recommend that she does increase oral hydration and fiber intake. Case discussed with my attending Dr. Joaquin Undiagnosed new problem with uncertain prognosis? @ -No Drug Therapy requiring intensive monitoring for toxicity (Heparin, Nitro, Insulin, Cardizem)? @ -No Were any procedures done? @ -No Diagnosis/symptom? @ -GI bleed Acute, or Chronic, or Acute on Chronic? @ -acute Uncomplicated (without systemic symptoms) or Complicated (systemic symptoms)? @ -uncomplicated Side effects of treatment? @ -No Exacerbation, Progression, or Severe Exacerbation? @ -No Poses a threat to life or bodily function? How? (Chest pain, [place], [place], pneumonia, PE, COPD, DKA, ARF, appy, cholecystitis, CVA, Diverticulitis, Homicidal, Suicidal, threat to staff... and all critical care pts) @ -No - Lab Data Result diagrams: 04/23/25 14:36 04/23/25 14:36 Lab Results 04/23/25 04/23/25 04/23/25 Range/Units 14:36 14:36 14:36 WBC 7.55 (4.50-10.00) 10*3/uL RBC 4.70 (4.10-5.20) 10*6/uL Hgb 14.6 (12.0-15.0) g/dL Hct 42.1 (37.2-46.3) % MCV 89.6 (80.0-97.0) fL MCH 31.1 (27.0-32.0) pg MCHC 34.7 (32.0-37.0) g/dL Plt Count 349 (140-440) 10*3/uL MPV 10.6 (9.5-12.2) fL Immature Gran % (Auto) 0.1 % Neutrophils % 71.7 % Lymphocytes % 21.1 % Monocytes % 6.2 % Eosinophils % 0.4 % Basophils % 0.5 % Immature Gran # 0.01 (0.00-0.04) 10*3/uL Neutrophils # 5.41 (1.80-7.70) 10*3/uL Lymphocytes # 1.59 (0.90-5.00) 10*3/uL Monocytes # 0.47 (0.20-1.00) 10*3/uL Eosinophils # 0.03 L (0.04-0.35) 10*3/uL Basophils # 0.04 (0.00-0.10) 10*3/uL Sodium 138 (137-145) mmol/L Potassium 4.8 (3.5-5.1) mmol/L Chloride 103 (98-107) mmol/L Carbon Dioxide 23 (22-30) mmol/L Anion Gap 12 mmol/L BUN 11 (7-17) mg/dL Creatinine 0.42 L (0.52-1.04) mg/dL Est GFR (CKD-EPI)AfAm >90 (>60 ml/min/1.73 sqM) Est GFR (CKD-EPI)NonAf >90 (>60 ml/min/1.73 sqM) Glucose 91 (74-99) mg/dL Calcium 9.8 (8.4-10.2) mg/dL Total Bilirubin 0.9 (0.2-1.3) mg/dL AST 41 H (14-36) U/L ALT 16 (4-34) U/L Alkaline Phosphatase 86 (38-126) U/L Total Protein 8.5 H (6.3-8.2) g/dL Albumin 4.9 (3.5-5.0) g/dL Stool Occult Blood Negative (Negative) Disposition Clinical Impression: GI bleed Disposition: HOME SELF-CARE Condition: Good Instructions (If sedation given, give patient instructions): Gastrointestinal Bleeding (ED) Additional Instructions: Please return to the Emergency Department if symptoms worsen or any other concerns. Please follow-up with your primary care provider on Friday for further evaluation Is patient prescribed a controlled substance at d/c from ED?: No Referrals: Diego Luz DO [Primary Care Provider] - 1-2 days Time of Disposition: 15:51
[2025-04-23 14:43] LABS: Basophils # (A) 0.04 10*3/uL (0.00-0.10); Basophils % (A) 0.5 %; Eosinophils # (A) 0.03 10*3/uL (0.04-0.35); Eosinophils % (A) 0.4 %; HCT 42.1 % (37.2-46.3); HGB 14.6 g/dL (12.0-15.0); Lymphocytes # (A) 1.59 10*3/uL (0.90-5.00); Lymphocytes % (A) 21.1 %; MCH 31.1 pg (27.0-32.0); MCHC 34.7 g/dL (32.0-37.0); MCV 89.6 fL (80.0-97.0); Monocytes # (A) 0.47 10*3/uL (0.20-1.00); Monocytes % (A) 6.2 %; Neutrophils # (A) 5.41 10*3/uL (1.80-7.70); Neutrophils % (A) 71.7 %; Platelet Count 349 10*3/uL (140-440); RBC 4.70 10*6/uL (4.10-5.20); RDW 11.7 % (11.5-14.5); WBC 7.55 10*3/uL (4.50-10.00)
[2025-04-23 15:05] LABS: ALT 16 U/L (4-34); African American GFR (CKD) >90 (>60 ml/min/1.73 sqM); Anion Gap 12 mmol/L; Blood Urea Nitrogen 11 mg/dL (7-17); Calcium 9.8 mg/dL (8.4-10.2); Carbon Dioxide 23 mmol/L (22-30); Chloride 103 mmol/L (98-107); Glucose 91 mg/dL (74-99); Non-African American GFR(CKD) >90 (>60 ml/min/1.73 sqM); Sodium 138 mmol/L (137-145)
[2025-04-23 15:17] LABS: AST 41 U/L (14-36); Albumin 4.9 g/dL (3.5-5.0); Alkaline Phosphatase 86 U/L (38-126); Potassium 4.8 mmol/L (3.5-5.1); Total Protein 8.5 g/dL (6.3-8.2)
[2025-04-23 16:33] VITALS: BP 109/78; PULSE 68; RESP 18; TEMP 97.8
== END 2025-04-23 16:33 | disposition home or self-care (01) ==
LOC: EC 12:53
DX: K92.2 Gastrointestinal hemorrhage, unspecified (principal); Z88.0 Allergy status to penicillin
CPT/HCPCS: 36415; 80053; 82272; 85025; 99285